=== PATIENT | male | born 1940 | race Caucasian/White ===

== ENCOUNTER 2024-02-09 06:12 | Day surgery (SDC) | payer OTHER, SELFPAY ==
[2024-02-09] VITALS (50 sets, daily range): BP systolic 117–161; BP diastolic 52–73; BMI 18.2
[2024-02-09 07:19] LABS: Glucose - Point of Care 125 mg/dl (70-99)
--- NOTE | 2024-02-09 07:25 | ITS.CL.CATH ---
Java Application Engineer - Catheterization
Cardiac Catheterization
Procedure Report:
CARDIAC CATHETERIZATION REPORT
Date of Procedure: 02/09/2024
Referring: Millan PA-C
�
Indication: Recurrent CHF with significant drop in LV function in patient with known CAD (PETRA circumflex and RCA 2003) and ischemic stress test
HEMODYNAMIC DATA
AO: 136/58
LV: 136/14
�
LEFT VENTRICULOGRAPHY: Not done
�
CORONARY ANGIOGRAPHY
Dominance: Right
Left Main: Normal
LAD: The LAD is moderately calcified. There is 30% mid LAD stenosis with otherwise trivial luminal irregularities in the LAD proper. The large first diagonal branch has 30% proximal stenosis. D2 is medium in size with 50% mid stenosis. D3 is a
large branching vessel with trivial luminal irregularities
Circumflex: The circumflex gives rise to a tiny OM1, a large previously stented OM 2, and continues on to supply several left posterolateral branches. There is 30% mid circumflex stenosis distal to OM1. The proximal OM2 stent is widely patent with
focal 20% in-stent stenosis.
RCA: The RCA is dominant with a very long stented segment extending from the proximal vessel to just past the crux. The stents were placed in May 2004. There is severe multisegment in-stent disease including 80% proximal, 95% mid, and 70%
distal in-stent stenoses. The RCA terminates with a small PDA and a medium to large right posterolateral branch.
Angioplasty: At the conclusion of the diagnostic study we decided to attempt multisegment intervention of the RCA. Heparin was used for anticoagulation. Plavix 600 mg was administered the procedure conclusion. A 6 [place] GRZEGORZ guide catheter was
advanced to the RCA origin. A hydrophilic whisper wire was advanced into the RCA but would not cross the nearly occluded mid vessel disease. A 1.5 x 15 [id number] trek balloon was brought in for support but could only be advanced into the
proximal RCA lesion. A Fielder XT wire similarly would not cross the mid vessel disease. At this point we used a clinical nurse occupational medicine 200 wire and were able to get past the mid disease and placed this wire in the distal RPL. A 1.25 x 15 sprinter was able to
cross the mid vessel disease and we began a series of balloon inflations from the distal stent all the way back to the proximal vessel. Multiple inflations were performed to 18 jaden. We then placed the guide liner although the guide liner would
only pass several millimeters into the RCA. We then placed a 2.0 x 15 trek again starting distally and back to the proximal vessel with segmental inflations to 17-18 jaden. A 2.25 x 20 NC trek was then used to dilate all of the diseased segments to
maximum 19 jaden. We then attempted unsuccessfully to pass a 2.75 x 34 mm [place] PETRA to the distal RCA. The stent would not pass through the mid vessel. The undeployed stent was removed and we performed aggressive angioplasty with a 2.5 x 20
NC Euphora to 19 jaden. This allowed us to get the stent all the way to the distal segment of disease and we deployed at 16 jaden. We then deployed a proximally overlapping 2.75 x 34 mm [place] PETRA to cover the proximal disease at 17 jaden. The
entire segment was then postdilated with a 2.75 NC Euphora to maximum 23 jaden. The final angiographic result was outstanding. There were no procedural complications. This was a very complex prolonged procedure requiring numerous balloons and wire
exchanges and fluoroscopy time of 30.6 minutes
�
Closure Device: None-due to the severity of his lower extremity arterial disease, no closure device was used. Of note injection in the right common iliac artery demonstrates severe calcific 80% stenosis in the ostial/proximal right common iliac
artery
�
Radiation (mGy): 650
DAP (cm2.Gy): 57.9
Fluoroscopy time 30.6 minutes
�
CONCLUSIONS
1:�Normal LVEDP (suggesting appropriate dry weight)
2:�Mild left coronary disease with severe multisegment RCA disease as described
3. Complex but successful intervention of the entire previously stented RCA segment using overlapping 2.75 x 34 and 2.75 x 34 [place] PETRA with outstanding angiographic result
4. Recommend dual antiplatelet therapy for 12 months then aspirin monotherapy
�
�
Copy to: Scooby Saravia DO, CHRISTEN Roberts
�
Qasim Morgan MD, FACC, [facility]
--- NOTE | 2024-02-09 07:34 | W.PN.UPDATE ---
Update Note
Progress Note Update
Informed consent obtained for cath and possible PCI. Met with pt and dtr and discussed risks- I suggested risk of /CVA from diagnostic angiogram to be 2-3 fold higher than normal based on age and frailty (on HD x 7 yrs). Risk estimated at
3-09/999. I also estimated PCI risk at 2-3/100 and explained this is 2-3 x normal risk. All questions answered. I don't think he would be a reasonable CT surgery candidate but will have him seen if his disease is clearly surgical and not amenable to
PCI
[2024-02-09 09:05] LABS: ACT-LR - POC > 397 Seconds (116-155)
[2024-02-09 09:05] LABS: ACT-LR - POC > 397 Seconds (116-155)
[2024-02-09 10:13] LABS: Glucose - Point of Care 112 mg/dl (70-99)
[2024-02-09 11:06] LABS: ACT-LR - POC 174 Seconds (116-155)
[2024-02-09 11:50] LABS: ACT-LR - POC > 397 Seconds (116-155)
--- NOTE | 2024-02-09 11:54 | PTCARENOTE ---
Assumed care of pt upon tsf from CCL post PCI. Pt arrives with femoral sheath in right groin. Transducer and pressure bag applied as ordered. VSS, CM shows NSR with first degree, POX 96% on RA. DP obtained by doppler. Activity restrictions
reviewed with pt and family. First ACT obtained is 174. Femoral line pulled by CCL. Pt remains on CBR with HOB restrictions till 1600. He denies any pain or discomfort at this time. Faily remains at bedside.
[2024-02-09 12:20] LABS: Glucose - Point of Care 118 mg/dl (70-99)
--- NOTE | 2024-02-09 13:28 | CM ---
Reviewed chart. Met with Mr. Knight and his daughter to review discharge plans. He states prior to admission he resides at [facility]. He states he has been there for four years. He states prior to admission he ambulates with a
rolling walker or he pushes his wheelchair. He states he has a wheelchair and walker at home. He states he does he own ADLS. He states he goes to [facility] for his dialysis. He goes Thursday, Thursday and Thursday. [facility]
assisted living provides transportation. He sttaes he has a prescription coverage and the facility gets his medications all but his diabetic medications that come from the [facility]. The discharge plan is to return to [facility]
with outpatient dialysis when medically stable.
[2024-02-09] MEDS: VENTOLIN NEBULES INH (13:32)
--- NOTE | 2024-02-09 13:33 | RESPNOTE ---
Respiratory: patient's family asked to hold off on nebulizer treatment for now. Patient asleep.
--- NOTE | 2024-02-09 15:24 | W.CON.NEPH ---
Consultation
-
Date/Time Consultation Requested: 02/09/24 09
Date/Time Consultation Performed: 02/09/24 1230
Requesting Provider: Qasim Luna
Performing Provider: Daniela Castaneda
Reason for Consultation: ESRD
Medical History
-
Chief Complaint: for LHC and PCI
History of Present Illness:
83-year-old male with a history of ESRD on dialysis Thursday at [facility] through left upper extremity AV fistula, insulin-dependent diabetes mellitus, hyperlipidemia on ezetimibe, hypothyroidism on levothyroxine, GERD on
pantoprazole, known CAD who reportedly had elevated blood pressures and difficulty to get UF on HD with shortness of breath. Subsequently he had further workup noted to have positive stress test and is here for left heart catheterization and
underwent overlap stenting of RCA segment. Nephrology asked to assist to dialysis need. He denies any chest pain or shortness of breath. He feels really well currently. No fevers or coughing or abdominal pain or diarrhea or constipation. He
recently was discontinued calcium acetate for normal phosphorus levels.
Past Medical History
ESRD
HTN
CAD
IDDM
Hypothyroidism
GERD
Depression
Vitamin D deficiency
Hyperlipidemia
Past Surgical History: Other (History of heart)
Social History
stenting. Left upper extremity radial fistula
Tobacco: Former Smoker ( quit within the last 1 year, smoked for 70 years)
Alcohol: Occasional
Drug: None
Employment: Retired
Family History
Mom DM and CKD
Allergies / Home Medications
Allergy/AdvReac Type Severity Reaction Status Date / Time
acetaminophen [From Percocet] AdvReac Unknown Nausea / Verified 02/09/24 07:41
Vomiting
hydromorphone [From Dilaudid] AdvReac Unknown Nausea / Verified 02/09/24 07:41
Vomiting
oxycodone [From Percocet] AdvReac Unknown Nausea / Verified 02/09/24 07:41
Vomiting
�Medication �Instructions �Recorded �Confirmed �Type
acetaminophen 500 mg tablet 500 mg PO Q6H PRN pain 02/09/24 02/09/24 History
albuterol sulfate 2.5 mg/3 mL 2.5 mg inhalation TID PRN sob 02/09/24 02/09/24 History
(0.083 %) solution for nebulization
aspirin 81 mg tablet 81 mg PO DAILY 02/09/24 02/09/24 History
ezetimibe 10 mg tablet 10 mg PO HS 02/09/24 02/09/24 History
insulin NPH-regular 70-30 U-100 8 unit SC BID 02/09/24 02/09/24 History
insulin 100 unit/mL subcutaneous
pen (Novolin 70-30 FlexPen U-100
Insulin)
levothyroxine 88 mcg tablet 88 mcg PO DAILY 02/09/24 02/09/24 History
mirtazapine 15 mg disintegrating 15 mg PO HS 02/09/24 02/09/24 History
tablet
nitroglycerin 0.4 mg sublingual 0.4 mg sublingual Q5-15M PRN chest 02/09/24 02/09/24 History
tablet pain
pantoprazole 40 mg tablet,delayed 40 mg PO BID 02/09/24 02/09/24 History
release
tiotropium bromide 2.5 2 puff inhalation DAILY 02/09/24 02/09/24 History
mcg/actuation mist for inhalation
(Spiriva Respimat)
Review of Systems
-
All complete 12 point ROS have been inquired and found negative other than stated in HPI
Physical Exam
Vital Signs
Vital Signs
Temp Pulse Resp BP Pulse Ox
96.5 F L 78 18 141/57 99
02/09/24 14:58 02/09/24 14:45 02/09/24 14:58 02/09/24 14:45 02/09/24 14:58
Lab Results
no labs to review
Physical Exam
General: Awake, Alert, Oriented, AOx3, No Distress and Nontoxic
HEENT: Anicteric, Conjunctivae Clear, Facial Symmetry, Neck Supple and No JVD
Respiratory: Clear, Normal Excursion and Nonlabored Respirations
Cardiac: S1/S2 and Regular Rate/Rhythm
Breast: Deferred by me
Abdomen: Soft, Nontender and Nondistended
Musculoskeletal: No Cyanosis, Edema and Other (left foot 3toes missing from traumatic amputation)
Skin: No Rash
Neuro: Nonfocal/Grossly Intact
Psych: Mood/afflect pleasant, Insight/judgement good and Appropriate
Vascular Access: AVF (left UE)
Data Reviewed
-
Medical Tests (Nuc Med, Echo etc): Report Reviewed by me and Discussed with Patient
Assessment/Plan
-
IMP:
CAD S/p RCA stent 02/09/24
ESRD
HTN
CAD
IDDM
Hypothyroidism
GERD
Depression
Vitamin D deficiency
Hyperlipidemia
Left UE AVF
h/o Traumatic left toe amputations
Plan:
A/w CAD symp, s/p RCA stent
will arrange for HD tomorrow
reportedly he had some difficulty to get UF on HD now that he has PCI likely attempt UF as tolerated to EDW
current BPs are stable
renal diet and FR
labs in am
d/w pt and family
[2024-02-09 16:51] LABS: Glucose - Point of Care 136 mg/dl (70-99)
[2024-02-09] MEDS: VENTOLIN NEBULES 2.5 MG INH (20:42)
[2024-02-09] MEDS: PROTONIX 40 MG PO (20:59)
[2024-02-09 21:02] LABS: Glucose - Point of Care 209 mg/dl (70-99)
[2024-02-09] MEDS: ZETIA 10 MG PO (23:04)
[2024-02-09] MEDS: REMERON ODT 15 MG PO (23:04)
[2024-02-10] VITALS (20 sets, daily range): BP systolic 109–162; BP diastolic 46–68; BMI 18.6
--- NOTE | 2024-02-10 01:19 | PTCARENOTE ---
Pt received start of shift, HR SR w/ 1st degree AV block. R groin site dressing CDI, soft - no hematoma. Pt denies any CP or SOB. Educated pt on CAD. Pt refused evening dose of insulin - pt states they only take insulin before breakfast and dinner.
[2024-02-10 04:12] LABS: Hematocrit 28.5 % (39.0-52.0); Hemoglobin 9.4 g/dL (13.0-18.0); Mean Corpuscular Hgb 28.5 pg (27.0-31.0); Mean Corpuscular Volume 86.4 fL (80.0-94.0); Mean Platelet Volume 10.6 fL (7.4-10.4); Platelet Count 228 10^3/uL (130-400); Red Cell Dist. Width 17.7 % (11.5-14.5); White Blood Cell Count 6.4 10^3/uL (4.8-10.8)
[2024-02-10 04:41] LABS: Blood Urea Nitrogen 54 mg/dl (9-20); Calcium 8.9 mg/dl (8.4-10.2); Carbon Dioxide 27 mmol/L (22-30); Chloride 95 mmol/L (98-107); Estimated Creatinine Clearance 7 ml/min; Glucose 110 mg/dl (70-99); HDL Cholesterol 32 mg/dl; LDL Cholesterol, Calculated 41 mg/dl; Potassium 4.7 mmol/L (3.5-5.1); Sodium 136 mmol/L (135-145); Total Cholesterol 93 mg/dl (50-199); Triglyceride 100 mg/dl (10-149); Very Low Density Lipoprotein 20 mg/dl (0-30); eGFR 9.31
[2024-02-10] MEDS: SYNTHROID 88 MCG PO (06:20)
[2024-02-10 06:59] LABS: Glucose - Point of Care 141 mg/dl (70-99)
[2024-02-10] MEDS: SPIRIVA RESPIMAT 2.5 MCG 2 PUFF INH (07:46)
[2024-02-10] MEDS: VENTOLIN NEBULES 2.5 MG INH ×2 (07:47→13:23)
[2024-02-10] MEDS: HEPARIN 500 UNITS IV ×2 (07:55→08:55)
--- NOTE | 2024-02-10 08:09 | W.PN.CD ---
Today's Communication / Plan
-
DAPT with ASA and clopidogrel.
Stable for outpatient follow up with Dr. Light.
Impression / Plan
-
Impression/Plan: 83 y/o male with ESRD on DIETARY AIDE COOK, HTN, HLD, IDDM and CAD with prior PCI to OM2 and a long segment of RCA, admitted after elective cardiac catheterization after a high risk stress test for post dialysis SOB, resulting in a complicated
but successful PCI of the entire RCA stented segment due to severe ISR.
#CAD
-Acute on chronic.
-C/Coronary angiography yesterday demonstrated luminal disease in the left system including a 20% ISR lesion in the OM2 stent and a diffusely diseased RCA with tandem ISR lesions in the proximal/mid RCA.
-Now s/p complicated but successful PCI of the entire previously stented RCA segment (two overlapping [employer] [place] 2.75 x 34 PETRA).
-DAPT with aspirin and clopidogrel.
-Continue high dose, high potency statin with atorvastatin and ezetimibe.
#IDDM
-Chronic.
-Inuslin management per primary service.
#HTN
-Acute on chronic.
-BP is mildly elevated (140-150's).
-Outpatient management.
#HLD
-Chronic.
-Total cholesterol = 93, LDL = 41, HDL = 32, Triglycerides = 100.
-Continue atorvastatin and ezetimibe.
#Dispo
-Stable for outpatient follow up.
-Primary Creative Intern = Benton Light M.D.
Subjective/Interval History:
PCI yesterday.
EKG shows lateral T wave inversions.
DATA:
Cardiac Catheterization/PCI, 02/09/2024:
CORONARY ANGIOGRAPHY
Dominance: Right
Left Main: Normal
LAD: The LAD is moderately calcified. There is 30% mid LAD stenosis with otherwise trivial luminal irregularities in the LAD proper. The large first diagonal branch has 30% proximal stenosis. D2 is medium in size with 50% mid stenosis. D3 is a
large branching vessel with trivial luminal irregularities
Circumflex: The circumflex gives rise to a tiny OM1, a large previously stented OM 2, and continues on to supply several left posterolateral branches. There is 30% mid circumflex stenosis distal to OM1. The proximal OM2 stent is widely patent with
focal 20% in-stent stenosis.
RCA: The RCA is dominant with a very long stented segment extending from the proximal vessel to just past the crux. The stents were placed in May 2004. There is severe multisegment in-stent disease including 80% proximal, 95% mid, and 70%
distal in-stent stenoses. The RCA terminates with a small PDA and a medium to large right posterolateral branch.
CONCLUSIONS
1:�Normal LVEDP (suggesting appropriate dry weight).
2:�Mild left coronary disease with severe multisegment RCA disease as described.
3. Complex but successful intervention of the entire previously stented RCA segment using overlapping 2.75 x 34 and 2.75 x 34 [place] frontier PETRA with outstanding angiographic result.
4. Recommend dual antiplatelet therapy for 12 months then aspirin monotherapy.
Physical Exam
Vital Signs/Labs
Vital Signs
Temp Pulse Resp BP Pulse Ox
36.6 C 70 18 162/63 100
02/10/24 06:54 02/10/24 07:48 02/10/24 07:48 02/10/24 06:56 02/10/24 06:54
02/08/24 02/09/24 02/10/24
11:59 11:59 11:59
Actual Weight 51.2 kg 52.163 kg
02/10/24 03:42
02/10/24 03:42
Triglycerides 100 mg/dl (10-149) 02/10/24 03:42
LDL Cholesterol, Calc 41 mg/dl 02/10/24 03:42
VLDL Cholesterol, Calc 20 mg/dl (0-30) 02/10/24 03:42
HDL Cholesterol 32 mg/dl 02/10/24 03:42
Physical Exam
Constitutional: No acute distress and Comfortable
EENT: Anicteric and Moist mucous membranes
Cardiovascular: Rhythm & rate is regular, Pedal edema is absent, JVD pressure is normal, S1S2 is normal and Murmur/rub/gallop absent
Respiratory: Respiratory effort normal, Lungs clear to auscul., Wheeze Absent, Crackles Absent and Rhonchi Absent
GI: Soft, Distention absent, Flat, Non tender and Normal bowel sounds
Neuro/Psych: AO x 3
Other: Cath Site (Right femoral access site is C/D/I.)
Data Reviewed
-
Date of Service: February 10, 2024
Medical Decision Making: Reviewed Test Results, Independent Historian Assessment and Test Interpretation
EKG: Tracing Personally Visualized and interpreted and Report Reviewed by me
Medical Tests (PFT, Pathology etc): Image Personally Visualized and interpreted and Report Reviewed by me
Labs: Labs Reviewed by me
Old Records: Reviewed
--- NOTE | 2024-02-10 08:31 | PTCARENOTE ---
Assumed care. Patient pleasant AO x 3. Occasional cough clear mucous, lungs CTA on room air 100%. Right groin cath site CDI, Doppler pedal pulses. Ate breakfast, scheduled dialysis this am. Oliguric, left arm dialysis fistula, call simeon in reach
[2024-02-10] MEDS: MANNITOL 25% 12.5 GRAMS IV ×2 (08:40→10:25)
--- NOTE | 2024-02-10 09:04 | W.PN.NEPH.HD ---
Assessment
-
Patient seen on HD
sbp stable at current u/f
discharge after HD
Progress Note - Hemodialysis
-
Date of Service: February 10, 2024
Duration: 30 minutes and 3 hours
Potassium Bath: 2
Calcium Bath: 2.5
Opti-Dialyzer: 160
Ultrafiltration: Other (2kg)
Blood Flow: 400
Dialysate Flow: 600
Heparin: 500 times two
EPO: none
[2024-02-10] MEDS: FLEXBUMIN 25% FOR HEMODIALYSIS 12.5 GRAMS IV ×2 (09:09→10:25)
[2024-02-10 09:25] LABS: Glycohemoglobin (HgbA1c) 5.2 % (4.0-5.6)
[2024-02-10 11:44] LABS: Glucose - Point of Care 94 mg/dl (70-99)
[2024-02-10] MEDS: PLAVIX 75 MG PO (11:47)
[2024-02-10] MEDS: ASPIR LOW (ENTERIC COATED) 81 MG PO (11:47)
[2024-02-10] MEDS: PROTONIX 40 MG PO (11:47)
--- NOTE | 2024-02-10 13:29 | PTCARENOTE ---
Report called to Karuna BURGER
--- NOTE | 2024-02-10 13:46 | W.DS.TRANS ---
DC Summary - [facility]
-
Discharge Instructions:
Discharge Diagnosis/Procedures Angioplasty and stent x2 to Right Coronary
artery
Diet Low Cholesterol,Diabetic, Carb Controlled
Driving Restrictions No driving for 24 hours
Other Services Cardiac Rehab
Instructions:
Stand-Alone Forms: DC Instructions- Cath/EP Lab
Changes to Home Medications: Yes
Discharge Medications:
DC Medications w/original date entered in [facility]
acetaminophen 500 mg tablet 500 mg PO Q6H PRN pain 02/09/24
albuterol sulfate 2.5 mg/3 mL (0.083 %) solution for nebulization 2.5 mg inhalation TID PRN sob 02/09/24
aspirin 81 mg tablet 81 mg PO DAILY 02/09/24
ezetimibe 10 mg tablet 10 mg PO HS 02/09/24
insulin NPH-regular 70-30 U-100 insulin 100 unit/mL subcutaneous pen (Novolin 70-30 FlexPen U-100 Insulin) See Rx Instructions .Route .COMPLEX 02/09/24
levothyroxine 88 mcg tablet 88 mcg PO DAILY 02/09/24
mirtazapine 15 mg disintegrating tablet 15 mg PO HS 02/09/24
nitroglycerin 0.4 mg sublingual tablet 0.4 mg sublingual Q5-15M PRN chest pain 02/09/24
pantoprazole 40 mg tablet,delayed release 40 mg PO BID 02/09/24
tiotropium bromide 2.5 mcg/actuation mist for inhalation (Spiriva Respimat) 2 puff inhalation DAILY 02/09/24
atorvastatin 40 mg tablet (Lipitor) 40 mg PO QPM 02/10/24
clopidogrel 75 mg tablet 75 mg PO DAILY #90 tabs 02/10/24
Home Medication Changes
new to plavix
Pending Results: No
[2024-02-10] MEDS: FLUAD (65 yr+) 2024-2025 FORMULA 0.5 ML IM (13:48)
--- NOTE | 2024-02-10 15:32 | PTCARENOTE ---
Patient discharge to [facility], daughter transporting to facility. Flu shot given at discharge. Teaching completed with patient and daughter. Vewrblized understanding. Patient escort to car by staff in a wheelchair
== END 2024-02-10 14:36 | disposition home or self-care (01) ==
LOC: CATH 06:12
PROVIDERS: Nurse Practitioner; ATTENDING PHYSICIAN Internal Medicine Cardiovascular Disease; CONSULT PHYSICIAN Internal Medicine; OTHER PHYSICIAN Internal Medicine Cardiovascular Disease
DX: I25.10 Atherosclerotic heart disease of native coronary artery without angina pectoris (principal); R94.39 Abnormal result of other cardiovascular function study; I13.2 Hypertensive heart and chronic kidney disease with heart failure and with stage 5 chronic kidney disease, or end stage renal disease; E11.22 Type 2 diabetes mellitus with diabetic chronic kidney disease; N18.6 End stage renal disease; Z99.2 Dependence on renal dialysis; I50.9 Heart failure, unspecified; E78.5 Hyperlipidemia, unspecified; K21.9 Gastro-esophageal reflux disease without esophagitis; E03.9 Hypothyroidism, unspecified; Z79.82 Long term (current) use of aspirin; Z79.02 Long term (current) use of antithrombotics/antiplatelets; Z79.4 Long term (current) use of insulin
CPT/HCPCS: C1725; C1894; C1769; C1887; 80048; 80061; 82962; 83036; 85027; 85347; 87070; 87147; 90662; 93005; 93458; 94640; C1874; C9600; G0008; G0257; P9047; Q9967